=== PATIENT | female | born 1985 | race Caucasian/White ===

== ENCOUNTER 2022-04-29 11:45 | Day surgery (SDC) | payer MEDICARE, OTHER ==
[2022-04-25 16:58] VITALS: BMI 34.1
[2022-04-29 13:04] VITALS: RESP 18
[2022-04-29 14:49] VITALS: TEMP 98
[2022-04-29 14:51] VITALS: BP 100/60; PULSE 80
== END 2022-04-29 15:26 | disposition home or self-care (01) ==
LOC: FASU-ENDO 11:45
PROVIDERS: ATTEND Internal Medicine Gastroenterology
PROC: 0DBL8ZX Excision of Transverse Colon, Via Natural or Artificial Opening Endoscopic, Diagnostic (ICD-10-PCS; 2022-04-29)
PROC: 0DBM8ZX Excision of Descending Colon, Via Natural or Artificial Opening Endoscopic, Diagnostic (ICD-10-PCS; 2022-04-29)
PROC: 0DBK8ZX Excision of Ascending Colon, Via Natural or Artificial Opening Endoscopic, Diagnostic (ICD-10-PCS; principal; 2022-04-29 14:12)
DX: K92.1 Melena (principal); R19.7 Diarrhea, unspecified; K64.1 Second degree hemorrhoids
CPT/HCPCS: 84703; 88305-TC

== ENCOUNTER 2022-07-04 10:50 | Day surgery (SDC) | payer MEDICARE, OTHER ==
[2022-07-01 16:30] VITALS: BMI 34.2
[2022-07-04] MEDS ORDERED: LIDOCAINE HCL/PF 2% SDV 5ML VIAL ONE (11:00)
[2022-07-04] MEDS ORDERED: PROPOFOL 40 ML ONE (11:00)
[2022-07-04 12:14] VITALS: RESP 18; TEMP 97.8
[2022-07-04 12:35] VITALS: BP 122/73; PULSE 80
== END 2022-07-04 12:50 | disposition home or self-care (01) ==
LOC: FASU-ENDO 10:50
PROVIDERS: ATTEND Internal Medicine Gastroenterology
PROC: 0DB68ZX Excision of Stomach, Via Natural or Artificial Opening Endoscopic, Diagnostic (ICD-10-PCS; 2022-07-04)
PROC: 0DB48ZX Excision of Esophagogastric Junction, Via Natural or Artificial Opening Endoscopic, Diagnostic (ICD-10-PCS; 2022-07-04)
PROC: 0DB98ZX Excision of Duodenum, Via Natural or Artificial Opening Endoscopic, Diagnostic (ICD-10-PCS; principal; 2022-07-04 11:41)
DX: K29.50 Unspecified chronic gastritis without bleeding (principal); K21.00 Gastro-esophageal reflux disease with esophagitis, without bleeding; R10.13 Epigastric pain
CPT/HCPCS: 81025; 88305-TC; 88342-TC